=== PATIENT | female | born 1955 | race African-American/Black ===

== ENCOUNTER 2016-12-22 23:22 | Emergency (ER) | payer BC ==
[2016-12-22 23:46] VITALS: BP 135/91
== END 2016-12-23 00:51 | disposition home or self-care (01) ==
LOC: ED 23:22
DX: S61.412A Laceration without foreign body of left hand, initial encounter (principal); I10 Essential (primary) hypertension; W26.0XXA Contact with knife, initial encounter; Y93.89 Activity, other specified; Y99.8 Other external cause status; Y92.89 Other specified places as the place of occurrence of the external cause
CPT/HCPCS: J2001